=== PATIENT | female | born 1950 | race African-American/Black ===

== ENCOUNTER 2018-02-14 02:54 | Inpatient (IN) | payer OTHER ==
[~2018-02-14] VITALS: Ht 167.6 cm; Wt 60.8 kg
[~2018-02-14 02:54] MED LIST: DYAZIDE 37.5-21 EACH PO
--- NOTE | 2018-02-14 09:04 | Patient Discharge Instructions ---
Discharge Instructions General Discharge Information You were seen/treated for: primary left hip osteosrthritis You had these procedures: left total hip arthroplasty Watch for these problems: Increasing pain despite the use of pain medication Increasing redness, warmth or swelling Drainage of any type from incision Inability to bear weight on operative leg Persistent nausea and vomiting Fever greater than 101.5 degrees No bath, but you may shower: Yes Other wound care: Please keep wound clean and dry. No ointments or lotions of any type on or near incision at any time. No exceptions. Your dressing will be changed by your nurse on the second day after your surgery. Daily dry dressing changes are recommended each day thereafter. Do not soak your wound in a bath at any time until otherwise indicated by your surgeon. You may shower, please dry wound immediately after shower with a clean towel. Special Instructions: Aspirin: You are taking this medication to help prevent blood clot formation. Please take with food to protect your stomach lining. Please take as directed. Constipation: Pain medication can cause constipation. Dr. Flor has recommended that you take Colace and miralax each day. You may discontinue this medication if you develop loose stool or diarrhea. If you wish to continue this medication, it is available over the counter. If you are unable to move your bowels after several days, if you are unable to pass gas and are developing bloating, nausea, or vomiting as a result, please contact your doctor. Coumadin: You are taking this medication to help prevent the development of blood clots. Another name for this medication is warfarin. The daily dose is subject to change. It is based on lab work called INR which will be tested at a minimum of two times per week. Basia will instruct you as to how much Coumadin you are to be taking. Please be sure to have communicated with him or his office regarding your doses prior to taking. Acute Coronary Syndrome Inclusion Criteria At DC or during hospital stay patient has or had the following: ACS DIAGNOSIS No Discharge Core Measures Meds if any: Prescribed or Continued at Discharge Meds if any: NOT Prescribed or Continued at Discharge Congestive Heart Failure Inclusion Criteria At DC or during hospital stay patient has or had the following: CHF DIAGNOSIS No Discharge Core Measures Meds if any: Prescribed or Continued at Discharge Meds if any: NOT Prescribed or Continued at Discharge Cerebrovascular accident Inclusion Criteria At DC or during hospital stay patient has or had the following: CVA/TIA Diagnosis No Discharge Core Measures Meds if any: Prescribed or Continued at Discharge Meds if any: NOT Prescribed or Continued at Discharge Venous thromboembolism Inclusion Criteria VTE Diagnosis No VTE Type NONE VTE Confirmed by (Test) NONE Discharge Core Measures - Per Current guidelines, there needs to be overlap - treatment for the first 5 days of Warfarin therapy. - If discharged on Warfarin prior to 5 days of - overlap therapy, the patient will need to be - assessed for post discharge needs including - *Post discharge parental anticoagulation - *Warfarin and/or parental anticoagulation education - *Follow up date to check INR post discharge At least 5 days overlap therapy as Inpatient No Meds if any: Prescribed or Continued at Discharge Note: Overlap Therapy is Warfarin and Anticoagulant Meds if any: NOT Prescribed or Continued at Discharge
--- NOTE | 2018-02-14 09:15 | Admission Core Measures ---
Acute Coronary Syndrome (CM) ACS Core Measures Acute Coronary Syndrome Diagnosis No Congestive Heart Failure (NEW) CHF Core Measures Congestive Heart Failure Diagnosis No Cerebrovascular Accident (NEW) CVA Core Measures CVA/TIA Diagnosis No Venous Thromboembolism VTE Core Patricia (View Protocol) VTE Risk Factors Age>40 No Mechanical VTE Prophylaxis d/t N/A MechProphylax Ordered No VTE Pharm Prophylaxis d/t NA PharmProphylax ordered Problem List As ranked by this Provider includes Assessment & Plan 1. S/P total hip arthroplasty HOME MEDS Home Med List Triamterene/Hydrochlorothiazid (Dyazide 37.5-25 Capsule) 37.5 MG-25 MG CAPSULE 2 CAP PO DAILY HTN (Reported)
--- NOTE | 2018-02-14 09:17 | Surg Short-stay <48hrs Dis Sum ---
Visit Information Visit Dates Admission Date: 02/14/18 Discharge Date: 02/14/18 Surgical Short Stay DC Summary Admission Diagnosis: Primary left hip osteoarthritis Final Diagnosis: Status post left total hip arthroplasty Procedure(s): Status post left total hip arthroplasty Summary/Significant Findings: Patient was admitted to the hospital for an elective total joint replacement. The procedure was tolerated well and patient was transferred to a general surgical floor. Diet was advanced and tolerated. The patient was evaluated and treated by physical therapy. At the time of hospital discharge, the vital signs were stable, neurovascular status was intact, and pain was controlled with the use of oral pain medications. Condition at Discharge: Stable Discharge Disposition: home health services Discharge instructions provided to patient/family: Yes Post discharge follow-up plan: Follow up with Dr. Flor in 6 weeks from date of surgery. Please call office to arrange &/or confirm this appointment.
[2018-02-14] MEDS ORDERED: MIRALAX119 GM PO (09:24)
[2018-02-14] MEDS ORDERED: ASPIRIN81 M4 PO (09:24)
[2018-02-14] MEDS ORDERED: DOCUSATE SODIU100 M3 PO (09:24)
[2018-02-14] MEDS ORDERED: DILAUDID2 M1 PO (09:29)
[2018-02-14] MEDS ORDERED: MS CONTIN15 M3 PO (09:29)
--- NOTE | 2018-02-14 10:17 | RADIOLOGY REPORT ---
EXAMINATION: XR HIP, LEFT CLINICAL INFORMATION: Status post surgery.. COMPARISON: None TECHNIQUE: Two views of the left hip. FINDINGS: AP and crosstable view left hip reveals total left hip prosthesis with prosthetic components in satisfactory alignment. Postoperative changes are seen in the soft tissues. IMPRESSION: Normal alignment of total left hip prosthesis with soft tissue postoperative changes noted.
[2018-02-14 11:16] VITALS: BP 108/68
--- NOTE | 2018-02-14 12:06 | Operative Report ---
Operative/Inv Procedure Report Surgery Date: 02/14/18 Name of Procedure: Left total hip replacement Pre-Operative Diagnosis: Primary left hip DJD Post-Operative Diagnosis: Same Estimated Blood Loss: 300 Surgeon/Stamps Or Coins Salesperson: Basia NOVAK,Roman Reina Anesthesia: block Operative/Procedure Note Note: Description of Procedure: The patient was taken to the operating room and positively identified. After induction of spinal anesthesia and administration of appropriate pre-operative antibiotics, the patient was positioned supine on the operating room table and all bony prominences were well padded. After performing a surgical timeout, the left lower extremity was prepped and draped in the usual sterile fashion. A direct anterior approach was made to the left hip. The incision was carried sharply through superficial soft tissues to the level of the fascia. Meticulous hemostasis was maintained with Bovie electocautery. The fascia over the tensor fascia yoana muscle was opened sharply and the interval between the TFL and the sartorius was entered bluntly taking care to stay lateral to the lateral femoral cutaneous nerve. Retractors were placed around the femoral neck and the pericapsular fat was identified. The ascending branches of the lateral femoral circumflex vessels were identified and carefully coagulated. The pericapsular fat and anterior capsule were then resected. A napkin ring osteotomy was performed and the femoral head was removed without difficulty. Attention was then turned to the acetabulum. After appropriate placement of retractors, the acetabulum was exposed. Soft tissue was cleaned from the acetabular margin and notch. Overhanging osteophytes were removed and the teardrop was exposed. The acetabulum was then sequentially reamed to accept a 54 mm [employer] Bernard Tritanium hemispherical solid shell. This was impacted into place in the appropriate position and fitted with a 36 mm Trident X3 zero degree polyethylene insert. Attention was then turned to the femur. After performing the appropriate ligament releases, the proximal femur was exposed. It was then sequentially broached to accept a size 5 Jenny Accolade 2 stem. This was trialed for leg length and stability. The trial component was removed and the final component was impacted into place. The trunnion was carefully cleaned and fit with a 36 mm, +2.5 Biolox delta ceramic femoral head. The hip was reduced and put through a full range of motion and found to be stable. The articular space was then irrigated with sterile saline. The periarticular soft tissues were infilitrated with Marcaine. The fascial layer was closed with interrupted #1 vicryl suture and the skin was re-approximated with interrupted 2 -0 vicryl. The skin was closed with a running 3-0 V-Lock suture. Steri-strips and a sterile dressing were applied. The patient was awakened and taken to the recovery room in satisfactory condition.
--- NOTE | 2018-02-14 13:39 | PN- Orthopedic ---
Subjective Subjective: poc s/p hip arthroplasty mild nausea delaying PT no nausea at present, PT getting her up now deneis cp, sob, tolerating diet Objective Vital Signs and I&Os Vital Signs Date Time Temp Pulse Resp B/P B/P Pulse O2 O2 Flow FiO2 Mean Ox Delivery Rate 02/14 1116 97.2 54 16 108/68 100 Room Air Room Air Intake & Output 02/14 1600 02/14 0800 02/14 0000 02/13 1600 02/13 0800 02/13 0000 Intake Total Output Total Balance Patient 134 lb 134 lb Weight Weight Reported by Patient Measurement Method Physical Exam: cv: rrr lungs: clear abd: soft, +bs ext: bilat distal cms intact drsg dry, thigh soft Assessment/Plan Assessment/Plan ortho stable plan oob with pt/ambulate/stairs when cleared d/c home f/u Dr Flor Core Measures Venous Thromboembolism VTE Risk Factors Age>40 No Mechanical VTE Prophylaxis d/t N/A MechProphylax Ordered No VTE Pharm Prophylaxis d/t NA PharmProphylax ordered
[2018-02-14 13:59] VITALS: BP 120/70
== END 2018-02-14 14:53 | disposition home health service (06) | DRG 470 ==
LOC: SDA 02:54 → ENRESERV 09:28 → ENTRNSPT 10:13 → EDTRNSPTSTS 10:34 → EDTRNSPT 10:34 → 2NB 10:53 → CMPTRNSPT 10:56 → ENPENDDIS 13:47 → ENTRNSPT 14:25 → EDTRNSPTSTS 14:43 → EDTRNSPT 14:43 → 2NB 14:53 → CMPTRNSPT 14:59
PROC: 0SRB04A Replacement of Left Hip Joint with Ceramic on Polyethylene Synthetic Substitute, Uncemented, Open Approach (ICD-10-PCS; principal; 2018-02-14)
DX: M16.12 Unilateral primary osteoarthritis, left hip (principal); I10 Essential (primary) hypertension; L93.0 Discoid lupus erythematosus; E55.9 Vitamin D deficiency, unspecified
CPT/HCPCS: 2NSBP; 73502-LT; 97116-GO; 97161-GP; 97530-GO; J0690; J0735; J1100; J2405; J3490; J7042